=== PATIENT | female | born 1980 | race Caucasian/White ===

== ENCOUNTER 2018-12-16 17:56 | Emergency (ER) | payer OTHER ==
[~2018-12-16] VITALS: Ht 165.1 cm; Wt 77.1 kg
[2018-12-16] MEDS ORDERED: HYDROcodone/APAP 5/325MG 1 TAB TABLET PO ONE (19:30)
[2018-12-16] MEDS ORDERED: IBUPROFEN 400 MG TABLET. PO ONE (19:30)
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
[2018-12-16] MEDS ORDERED: IBUP-1060 PO (20:36)
[2018-12-16] MEDS ORDERED: HYDR-3164 PO (20:36)
[2018-12-16] MEDS ORDERED: DIAZ5TAB PO (20:36)
[2018-12-16 20:52] VITALS: BP 111/65
== END 2018-12-16 20:52 | disposition home or self-care (01) ==
LOC: ER 17:56
DX: S09.90XA Unspecified injury of head, initial encounter (principal); M25.511 Pain in right shoulder; M62.838 Other muscle spasm; G40.909 Epilepsy, unspecified, not intractable, without status epilepticus; M54.5 Low back pain; M54.6 Pain in thoracic spine; M54.2 Cervicalgia; V49.88XA Car occupant (driver) (passenger) injured in other specified transport accidents, initial encounter; Y93.89 Activity, other specified; Y92.488 Other paved roadways as the place of occurrence of the external cause; Y99.8 Other external cause status
CPT/HCPCS: 72040; 72072; 72100; 73030; 99283